=== PATIENT | female | born 1995 | race Caucasian/White ===

== ENCOUNTER 2020-09-19 15:53 | Emergency (ER) | payer MEDICAID ==
[~2020-09-19] VITALS: Ht 160 cm; Wt 79.4 kg
[2020-09-19 16:03] VITALS: BP 118/91
[2020-09-19] MEDS ORDERED: IBUP-2213 PO (17:22)
[2020-09-19] MEDS ORDERED: SULF-59 PO (17:22)
[2020-09-19] MEDS ORDERED: CEPH-588 PO (17:22)
[2020-09-19 17:33] VITALS: BP 118/91
== END 2020-09-19 17:34 | disposition home or self-care (01) ==
LOC: MED 15:53
DX: L03.311 Cellulitis of abdominal wall (principal); W57.XXXA Bitten or stung by nonvenomous insect and other nonvenomous arthropods, initial encounter; Y93.89 Activity, other specified; Y92.89 Other specified places as the place of occurrence of the external cause; Y99.8 Other external cause status
CPT/HCPCS: 81025; 90715; 99283

== ENCOUNTER 2020-09-20 02:40 | Emergency (ER) | payer MEDICAID ==
[~2020-09-20] VITALS: Ht 160 cm; Wt 79.4 kg
[~2020-09-20 02:40] MED LIST: CEPH-588 PO; IBUP-2213 PO; SULF-59 PO
[2020-09-20 02:46] VITALS: BP 115/77
--- NOTE | 2020-09-20 02:48 | NUR ---
TO BED AMBULATORY
--- NOTE | 2020-09-20 03:30 | NUR ---
PT BIB SELF FOR C/O 10/10 PAIN TO [facility]. UPON OBSERVATION, NOTABLE ABCESS PRESENT WITH REDNESS AND SWELLING. PT REPORTS SHE THOUGHT SHE HAD A PIMPLE ON HER STOMACH 4 DAYS AGO AND SHE TRIED TO POP IT. IT THEN BECAME SWOLLEN AND GRADUALLY GOT WORSE. PT DENIES FEVER, CHILLS, N/V/D, CP, SOB. MED HX: DENIES ALLERGIES: NKA
[2020-09-20] MEDS ORDERED: VANCOMYCIN 1,000 MG in DEXTROSE 5% 250 ML IV ONE (04:20)
[2020-09-20] MEDS ORDERED: VANCOMYCIN 1,000 MG VIAL ONE (04:44)
[2020-09-20] MEDS ORDERED: LIDOCAINE/EPI 1% 1:100000 20 ML VIAL INJ ONE (04:45)
--- NOTE | 2020-09-20 04:45 | NUR ---
I&D Procedure done by Dr Andrea LONGORIA. MINIMAL amt of bleeding noted. Wound packed with 1/4 IODOFORM . Pt TOLERATED procedure WELL. Wound care discussed w/ patient. CULTURE COLLECTED AND TAKEN TO LAB.
[2020-09-20 06:00] VITALS: BP 112/69
--- NOTE | 2020-09-20 06:05 | NUR ---
PT AMBULATED TO RESTROOM WITH STEADY GAIT.
--- NOTE | 2020-09-20 06:44 | NUR ---
ERMD AT BEDSIDE.
[2020-09-20] MEDS ORDERED: KETOROLAC 30 MG/ML VIAL IVP ONE (06:50)
--- NOTE | 2020-09-20 07:20 | NUR ---
Patient discharged with v/s stable. Written and verbal after care instructions given and explained. Patient verbalized understanding. Ambulatory with steady gait. All questions addressed prior to discharge. Advised to follow up with PMD.
--- NOTE | 2020-09-23 10:41 | NUR ---
LATE ENTRY---Aerobic culture results received from lab. Results shown to Dr. Tatum. No new orders needed at this time. Treatment appropriate. Copy placed in C&S folder.
== END 2020-09-20 07:20 | disposition home or self-care (01) ==
LOC: MED 02:40
DX: L02.211 Cutaneous abscess of abdominal wall (principal); Z79.899 Other long term (current) drug therapy
CPT/HCPCS: 10060; 36415; 87040; 87070; 87186; 96365; 96366; 96375; 99284; J1885; J2001; J3370

== ENCOUNTER 2020-09-23 12:51 | Emergency (ER) | payer MEDICAID ==
[~2020-09-23] VITALS: Ht 160 cm; Wt 77.1 kg
[2020-09-23 12:58] VITALS: BP 121/84
--- NOTE | 2020-09-23 13:01 | NUR ---
WAIT AT LOBBY
--- NOTE | 2020-09-23 13:20 | NUR ---
PT AMB TO BED 6
--- NOTE | 2020-09-23 13:45 | NUR ---
25 y/o F BIB self from home with c/c wound recheck. Patient A&Ox4, seen here two days ago for abscess I&D. Patient denies any pain to the incision site; reports foul smell for past day. Pateint states concern of infection due to foul smell. Bleeding controlled; gauze pack noted with dark red dry blood. Patient denies fever, chills, N/V/D, abdominal pain, dizziness, headache. Patient states she is compliant with her prescribed antibiotics. Bed locked in lowest position, side rails x 1, call light in reach. PMH/Sx/Allergies: Denies Meds: Ibuprofen, Bactrim, Keflex
[2020-09-23] MEDS ORDERED: BACITRACIN OINT 500 UNITS/GM PKT TP ONE ×2 (13:58→14:00)
--- NOTE | 2020-09-23 14:01 | NUR ---
PT WOUND DRESSED WITH BACITRACIN AND NON-ADHERENT GUAZE PAD AND TAPPED
[2020-09-23 14:12] VITALS: BP 121/84
== END 2020-09-23 14:12 | disposition home or self-care (01) ==
LOC: MED 12:51
DX: L02.211 Cutaneous abscess of abdominal wall (principal); Z79.899 Other long term (current) drug therapy
CPT/HCPCS: 99282

== ENCOUNTER 2020-10-24 12:01 | Emergency (ER) | payer MEDICAID ==
[~2020-10-24] VITALS: Ht 160 cm; Wt 78.9 kg
[2020-10-24 12:22] VITALS: BP 130/80
--- NOTE | 2020-10-24 12:33 | NUR ---
pt ambulated to bed 12.
[2020-10-24] MEDS ORDERED: IBUPROFEN 600 MG TAB PO ONE (13:00)
--- NOTE | 2020-10-24 13:12 | NUR ---
25 Y/O F BIB SELF, WAS DROPPED OFF (DOES NOT SPECIFY), C/O L UPPER LEG PAIN, C/O SWELLING AND ABSCESS THAT SHE STATES "I TRIED TO POP A PIMPLE ON THE BACK OF MY LEG, BUT IT WOULD NOT POP." DENIES N/V/D; SKIN IS PINK/WARM/DRY; AAOX4 WITH EVEN AND STEADY GAIT, IS ABLE TO FLEX AND EXTEND BILATERAL LOWER EXTREMITIES; LUNGS CLEAR BL; HR EVEN AND REGULAR; PT DENIES ANY FEVER, CP, SOB, OR COUGH AT THIS TIME; PATIENT STATES PAIN OF 10/10 AT THIS TIME; VSS; PATIENT POSITIONED FOR COMFORT; HOB ELEVATED; BEDRAILS UP X2; BED DOWN. ER MD MADE AWARE OF PT STATUS. PMH: DENIES NKA MED: DENIES
--- NOTE | 2020-10-24 13:16 | NUR ---
PT UNABLE TO GIVE URINE AT THIS TIME
[2020-10-24] MEDS ORDERED: SULF-58 PO ×2 (14:49→15:14)
[2020-10-24 15:17] VITALS: BP 130/80
--- NOTE | 2020-10-24 15:18 | NUR ---
Patient discharged with v/s stable. Written and verbal after care instructions given and explained. Patient alert, oriented and verbalized understanding of instructions. Ambulatory with steady gait. All questions addressed prior to discharge. ID band removed. Patient advised to follow up with PMD. Rx of SULFAMETHOXAZOLE given. Patient educated on indication of medication including possible reaction and side effects. Opportunity to ask questions provided and answered.
== END 2020-10-24 15:18 | disposition home or self-care (01) ==
LOC: MED 12:01
DX: L03.116 Cellulitis of left lower limb (principal); Z79.899 Other long term (current) drug therapy
CPT/HCPCS: 36415; 81002; 81025; 87491; 99284

== ENCOUNTER 2021-06-30 02:54 | Emergency (ER) | payer MEDICAID ==
[~2021-06-30] VITALS: Ht 160 cm; Wt 68.0 kg
[~2021-06-30 02:54] MED LIST changes: +SULF-58 PO
[2021-06-30 02:59] VITALS: BP 139/95
--- NOTE | 2021-06-30 03:08 | NUR ---
PT AMBULATORY TO BED 04 W STEADY GAIT.
[2021-06-30] MEDS ORDERED: LIDOCAINE/EPI 1% 1:100000 20 ML VIAL INJ ONE (03:10)
--- NOTE | 2021-06-30 03:10 | NUR ---
Note undone in EDM - 06/30/21 at 0322 by ROSEANN BIB SELF TO THE ED WITH CHIEF COMPLAINT OF RIGHT FOOT PAIN. A&OX4. VERBALLY RESPONSIVE AND ABLE TO COMMUNICATE NEEDS. PER PT, SHE WOKE UP YESTERDAY AT 2200 WITH CONTINUOUS PAIN ON HER RIGHT FOOT 10/04. PT STATED SHE NOTICED A WART WHERE THE PAIN IS LOCALIZED. PT STATES SHE DID NOT TAKE ANYTHING TO HELP RELIEVE PAIN. PT STATES SHE CLEANSED WITH HYDROGEN PEROXIDE BUT DID NOT IMPROVE CONDITION. PT IS AMBULATORY. PT IS CONTINENT OF VOID AND BM. ERMD AWARE. PMH: DENIES ALLERGIES:NKA MEDS: DENIES
[2021-06-30] MEDS ORDERED: ETHYL CHLORIDE 105 ML SPR TP ONE (03:20)
--- NOTE | 2021-06-30 03:23 | NUR ---
PT AMBULATED TO BR.
--- NOTE | 2021-06-30 03:33 | NUR ---
PT AMBULATED BACK TO BED WITH ASSIST.
--- NOTE | 2021-06-30 03:34 | NUR ---
PT STATED IF THERE ARE ANY ALTERNATIVES TO WHAT ERMD RECOMMENDED. ERMD MADE AWARE. ERMD STATED NO OTHER ALTERNATIVES AND PT CAN LEAVE IF SHE DOESN'T WANT THE BEDSIDE PROCEDURE DONE.
[2021-06-30 03:44] VITALS: BP 139/95
== END 2021-06-30 03:41 | disposition home or self-care (01) ==
LOC: MED 02:54
DX: B07.0 Plantar wart (principal)
CPT/HCPCS: 99282; J2001